=== PATIENT | female | born 1960 | race Two or more races ===

== ENCOUNTER 2024-10-09 09:48 | Inpatient (IN) | payer MEDICAID, OTHER ==
[~2024-10-09] VITALS: Ht 167.6 cm; Wt 78.9 kg
[2024-10-09] MEDS: IPRATROPIUM BROM 0.5 MG/2.5ML INH SOL NEB ONE (10:22)
[2024-10-09] MEDS: ALBUTEROL SULF 2.5 MG/0.5ML(0.5%) NEB SOLN NEB ONE (10:22)
[2024-10-09] MEDS: methylPREDNISolone SOD SUCC 125 MG/2 ML VL IV ONE (10:22)
[2024-10-09] MEDS: AZITHROMYCIN 500MG/ 250ML 250 ML IV ONE (10:22)
--- NOTE | 2024-10-09 10:23 | ED.PDOC ---
SOB-HPI HPI Comments 64 y.o female with PMHx of COPD and HTN, presents to the ED via EMS for a chief complaint of SOB associated with a productive cough that started 3 days ago. Patient reports developing substernal non radiating chest pain today which has since subsided after using nebulizer at home. Patient reports oxygen use at home at 3 liters [place] which she has been using alongside her inhaler noting mild relief. EMS administrated a breathing treatment en route with relief. No active chest pain, nausea, vomiting, diarrhea, abdominal pain, fever or chills reported. 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 Family History Family History: Reviewed,noncontributory to illness Social History Smoker: Non-Smoker Alcohol: Denies ETOH Use Drugs: Denies Drug Use Lives In: Home Constitutional: denies: chills, diaphoresis, fatigue, fever, malaise, sweats, weakness, others EENTM: denies: blurred vision, double vision, ear bleeding, ear discharge, ear drainage, ear pain, ear ringing, eye pain, eye redness, hearing loss, mouth pain, mouth swelling, nasal discharge, nose bleeding, nose congestion, nose pain, photophobia, tearing, throat pain, throat swelling, voice changes, others Respiratory: reports: cough, SOB at rest, shortness of breath, SOB with excertion; denies: hemoptysis, orthopnea, stridor, wheezing, others Cardiovascular: reports: chest pain; denies: dizzy spells, diaphoresis, Dyspnea on exertion, edema, irregular heart beat, left arm pain, lightheadedness, palpitations, PND, syncope, others Gastrointestinal: denies: abdomen distended, abdominal pain, blood streaked bowels, constipated, diarrhea, dysphagia, difficulty swallowing, hematemesis, melena, nausea, poor appetite, poor fluid intake, rectal bleeding, rectal pain, vomiting, others Genitourinary: denies: abnormal vagina bleeding, burning, dyspareunia, dysuria, flank pain, frequency, hematuria, incontinence, pain, , vagina discharge, urgency, others Neurological: denies: dizziness, fainting, headache, left sided numbness, left sided weakness, numbness, paresthesia, pre-existing deficit, right sided numbness, right sided weakness, seizure, speech problems, tingling, tremors, weakness, others Musculoskeletal: denies: back pain, gout, joint pain, joint swelling, muscle pain, muscle stiffness, neck pain, others Integumetry: denies: bruises, change in color, change in hair/nails, dryness, laceration, lesions, lumps, rash, wounds, others Allergic/Immunocompromised: denies: Difficulty Healing, Frequent Infections, Hives, Itching, others Hematologic/Lymphatic: denies: anemia, blood clots, easy bleeding, easy bruising, swollen glands, others Endocrine: denies: excessive hunger, excessive sweating, excessive thirst, excessive urination, flushing, intolerance to cold, intolerance to heat, unexplained weight gain, unexplained weight loss, others Psychiatric: denies: anxiety, bipolar disorder, depression, hopeless, panic disorder, schizophrenia, sleepless, suicidal, others All Other Systems: Reviewed and Negative Physical Exam General Appearance: Mild Distress HEENT: Other (Dry mucous membranes, poor dentition) Neck: Full Range of Motion, Normal Inspection Respiratory: Decreased Breath Sounds, No Accessory Muscle Use, Respiratory Distress (Mild), Rhonchi, Wheezing Cardiovascular: No Edema, No JVD, Regular Rate/Rhythm Breast Exam: Deferred Gastrointestinal: Non Tender, Soft Genitalia: Deferred Pelvic: Deferred Rectal: Deferred Extremities: Normal inspection, Normal range of motion, Non-tender, No pedal edema Neurologic: Alert (Oriented x4), Normal Affect, Normal Mood, Other (Ambulatory without difficulty. No gross focal deficit.) Cerebellar Function: NOT DONE Reflexes: NOT DONE Skin: Dry, Normal Color, Warm Lymphatic: NOT DONE EKG EKG : Comments Sinus rhythm, rate 89, normal intervals, normal axis, RVH, anteroseptal T-wave inversion Was a procedure done? Was a procedure done?: No Differential Dx Differential Diagnosis: Asthma, Bronchitis, CHF, COPD, Pneumonia, Respiratory Distress, URI X-Ray, Labs, Meds, VS Vital Signs Date Time Temp Pulse Resp B/P (MAP) Pulse Ox O2 Delivery O2 Flow Rate FiO2 10/09/24 10:22 18 94 Nasal Cannula* 3 32 10/09/24 09:48 99.2 110 26 148/92 (110) 90 Lab Test 10/09/24 11:00 10/09/24 10:31 Range/Units Troponin I High Sensitivity Pending 5 </=34 ng/L White Blood Count 14.7 H 4.4-10.8 10^3/uL Red Blood Count 5.04 4.0-5.20 10^6/uL Hemoglobin 15.6 12.2-16.2 g/dL Hematocrit 45.5 36.0-46.0 % Mean Corpuscular Volume 90.1 80.0-100.0 fL Mean Corpuscular Hemoglobin 30.9 28.0-32.0 pg Mean Corpuscular Hemoglobin Concent 34.3 32.0-36.0 g/dL Red Cell Distribution Width 14.2 11.8-14.3 % Platelet Count 197 140-450 10^3/uL Mean Platelet Volume 9.5 6.9-10.8 fL Neutrophils (%) (Auto) 80.5 H 37.0-80.0 % Lymphocytes (%) (Auto) 4.5 L 10.0-50.0 % Monocytes (%) (Auto) 12.4 H 0.0-12.0 % Eosinophils (%) (Auto) 2.2 0.0-7.0 % Basophils (%) (Auto) 0.4 0.0-2.0 % Neutrophils # (Auto) 11.8 H 1.6-8.6 10 ^3/uL Lymphocytes # (Auto) 0.7 0.4-5.4 10 ^3/uL Monocytes # (Auto) 1.8 H 0-1.3 10 ^3/uL Eosinophils # (Auto) 0.3 0-0.8 10 ^3/uL Basophils # (Auto) 0.1 0-0.2 10 ^3/uL Nucleated Red Blood Cells 0.1 % Sodium Level 136 136-145 mmol/L Potassium Level 4.1 3.5-5.1 mmol/L Chloride Level 102 98-107 mmol/L Carbon Dioxide Level 28 20-31 mmol/L Anion Gap 6 5-15 Blood Urea Nitrogen 12 9-23 mg/dL Creatinine 0.63 0.550-1.02 mg/dL Glomerular Filtration Rate Calc 99 >90 mL/min BUN/Creatinine Ratio 19.0 10.0-20.0 Serum Glucose 126 H 74-106 mg/dL Calcium Level 9.6 8.7-10.4 mg/dL B-Type Natriuretic Peptide 240.80 0-100 pg/mL Current Medications Medications (Trade) Dose Ordered Sig/Rafael Route Start Time Stop Time Status Last Admin Albuterol (Ventolin Medneb) 5 mg ONCE ONCE NEB 10/09/24 10:15 10/09/24 10:16 DC 10/09/24 10:22 Ipratropium [place] (Atrovent Medneb) 0.5 mg ONCE ONCE NEB 10/09/24 10:15 10/09/24 10:16 DC 10/09/24 10:22 Methylprednisolone Sodium Succinate (Solu Medrol) 125 mg ONCE ONCE IV 10/09/24 10:15 10/09/24 10:16 DC 10/09/24 10:22 Azithromycin 250 ml @ 125 mls/hr ONCE ONCE IV 10/09/24 10:15 10/09/24 12:14 10/09/24 10:22 PROCEDURE(s): CXRP - CHEST PORTABLE REASON: sob ORDER NUMBER(s): [id number], ACCESSION NUMBER(s): [id number] XY CHEST PORTABLE, HISTORY: sob COMPARISON: None None TECHNICAL DATA: 1 view of the chest was obtained. FINDINGS: Lines and tubes: None Cardiomediastinal silhouette: normal Pulmonary vasculature: normal Lung expansion: normal Lung airspace: Patchy bibasilar airspace opacities. Lung interstitium: normal Pleura: normal Pneumothorax: no Bones: Unremarkable Other: no IMPRESSION: Patchy bibasilar airspace opacities. X-Ray, Labs, Meds, VS Comment 64-year-old female with a history of hypertension and COPD on home O2 complaining of shortness a breath despite using her home nebulizer Vitals remarkable for heart rate 110, respiratory rate 26, BP 146/92, oxygen saturation 94% on 3 L nasal cannula Exam remarkable for mild respiratory distress, bilateral rhonchi and wheezes, diminished breath sounds Rhythm strip independently interpreted by me: Sinus tach, rate 110, no ectopy. Chest x-ray CBC, metabolic panel remarkable for WBC 14.7, BNP 240.8, troponin negative, no other abnormalities of acute significance Patient treated with the following in the ED: Albuterol 5 mg/Atrovent 0.5 mg nebulized, Solu-Medrol 125 mg IV, Zithromax 500 mg IV, Rocephin 1 g IV Re-evaluation, patient states her shortness breath has improved, however she is still mildly tachypneic and has scattered rhonchi on exam. Oxygen saturation is 94% on 3 L. Plan is to admit the patient for IV antibiotics and respiratory support as needed. Time of 1ST Reevaluation: 10:12 Reevaluation 1ST: Unchanged Patient Education/Counseling: Diagnosis, Treatment, Prognosis Family Education/Counseling: No Family Present Departure 1 Departure Time of Disposition: 11:22 Impression: Primary Impression: [id number] respiratory failure Qualified Codes: J96.20 - Acute and chronic respiratory failure, unspecified whether with hypoxia or hypercapnia Additional Impressions: COPD exacerbation Pneumonia Qualified Codes: J18.9 - Pneumonia, unspecified organism Disposition: ADMITTED INPATIENT Admit to: Tele Condition: Guarded Critical Care Note Critical Care Time?: No Stability Stability form required: No Heart Score Heart Score: Heart Score Response (Comments) Value History Slightly Suspicious [address]-Deviation 2 Age 45-64 1 Risk Factors >3 or Hx ASHD 2 Troponin Normal limit 0 Total 5 I personally scribed for NGOZI ALLRED MD ([facility]) on 10/09/24 at 10:23. Electronically submitted by Jessika Orozco ([facility]). NGOZI ALLRED MD Oct 09, 2024 10:23
--- NOTE | 2024-10-09 10:35 | DVH ---
XY CHEST PORTABLE, HISTORY: sob COMPARISON: None None TECHNICAL DATA: 1 view of the chest was obtained. FINDINGS: Lines and tubes: None Cardiomediastinal silhouette: normal Pulmonary vasculature: normal Lung expansion: normal Lung airspace: Patchy bibasilar airspace opacities. Lung interstitium: normal Pleura: normal Pneumothorax: no Bones: Unremarkable Other: no IMPRESSION: Patchy bibasilar airspace opacities.
[2024-10-09 10:49] LABS: Chloride 102 mmol/L (98-107); Potassium 4.1 mmol/L (3.5-5.1); Sodium 136 mmol/L (136-145)
[2024-10-09 10:50] LABS: Anion Gap 6 (5-15); Calcium 9.6 mg/dL (8.7-10.4); Carbon Dioxide 28 mmol/L (20-31)
[2024-10-09 10:55] LABS: Blood Urea Nitrogen 12 mg/dL (9-23)
[2024-10-09 11:00] LABS: Glucose 126 mg/dL (74-106)
[2024-10-09 11:20] LABS: Basophils # (auto) 0.1 10 ^3/uL (0-0.2); Basophils % (auto) 0.4 % (0.0-2.0); Eosinophils # (auto) 0.3 10 ^3/uL (0-0.8); Eosinophils % (auto) 2.2 % (0.0-7.0); Hematocrit 45.5 % (36.0-46.0); Hemoglobin 15.6 g/dL (12.2-16.2); Lymphocytes # (auto) 0.7 10 ^3/uL (0.4-5.4); Lymphocytes % (auto) 4.5 % (10.0-50.0); Mean Corpuscular Hemoglobin 30.9 pg (28.0-32.0); Mean Corpuscular Hgb Conc. 34.3 g/dL (32.0-36.0); Mean Corpuscular Volume 90.1 fL (80.0-100.0); Monocytes # (auto) 1.8 10 ^3/uL (0-1.3); Monocytes % (auto) 12.4 % (0.0-12.0); Neutrophils # (auto) 11.8 10 ^3/uL (1.6-8.6); Neutrophils % (auto) 80.5 % (37.0-80.0); Nucleated Red Blood Cells % 0.1 %; Platelet Count (auto) 197 10^3/uL (140-450); Red Blood Cells 5.04 10^6/uL (4.0-5.20); Red Cell Distribution Width 14.2 % (11.8-14.3); White Blood Cell 14.7 10^3/uL (4.4-10.8)
--- NOTE | 2024-10-09 11:20 | ECG ---
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
--- NOTE | 2024-10-09 12:12 | DVHHP2 ---
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 She feels she had an cold. She states she has been coughing so hard that her wrist has been hurting her. She denies any chest pain. Patient denies any calf pain or leg swelling. When patient was in seen she was given treatment and she improved after the first treatment. She does use oxygen at home 3 L but she states that she has not changed amount of L she uses. When evaluating patient's labs and imaging from ED ceftriaxone was given azithromycin Solu-Medrol albuterol and Atrovent white count was 14.7 troponin was negative BNP was mildly elevated at 240 chest x-ray shows pneumonia. With these findings we will admit patient for IV antibiotics and also provide treatment for COPD Past Medical History COPD and hypertension Past Surgical History Family History Reviewed, non-contributory to the management of this case. Past Social History The patient lives at home, denies smoking, alcohol or illicit drugs abuse. Review of Systems Constitutional: No: Fever, Chills, Sweats, Weakness, Malaise, Other Eyes: No: Pain, Vision change, Conjunctivae inflammation, Eyelid inflammation, Other, Redness ENT: No: Ear pain, Ear discharge, Nose pain, Nose discharge, Nose congestion, Mouth pain, Mouth swelling, Throat pain, Throat swelling, Other Respiratory: Cough, Shortness of breath, Other (Coarse rales heard throughout); No: Dry, SOB with excertion, Wheezing, Hemoptysis, Pleuritic Pain, Sputum, Wheezing Cardiovascular: No: Chest Pain, Palpitations, Orthopnea, Paroxysmal Noc. Dyspnea, Edema, Lt Headedness, Other Gastrointestinal: No: Nausea, Vomiting, Abdominal Pain, Diarrhea, Constipation, Melena, Hematochezia, Other Genitourinary: No Dysuria, No Frequency, No Incontinence, No Hematuria, No Retention, No Other Musculoskeletal: No: other, neck pain, shoulder pain, arm pain, back pain, hand pain, leg pain, foot pain Skin: No: Rash, Lesions, Jaundice, Bruising, Other Neurological: No: Weakness, Numbness, Incoordination, Change in speech, Confusion, Seizures, Other Allergies: Coded Allergies: Aspirin (Verified Allergy, Severe, 10/09/24) Exam Vital Signs Vital Signs Date Time Temp Pulse Resp B/P (MAP) Pulse Ox O2 Delivery O2 Flow Rate FiO2 10/09/24 11:18 89 10/09/24 10:22 18 94 Nasal Cannula* 3 32 10/09/24 09:48 99.2 148/92 (110) General Appearance: Alert, Oriented X3, Cooperative, mild distress HEENT: Atraumatic, PERRLA, EOMI, Mucous membr. moist/pink Respiratory: Other (Coarse rales heard throughout) Cardiovascular: Regular rate, Normal S1, Normal S2, No murmurs Abdominal: Normal bowel sounds, Soft, No tenderness, No hepatospenomegaly, No masses Extremities: No clubbing, No cyanosis, No edema, Normal pulses, No tenderness/swelling Skin: No rashes, No breakdown, No significant lesion Neuro: Normal gait, Normal speech, Strength at 5/5 X4 ext, Normal tone, Sensation intact, Cranial nerves 3-12 NL Psych/Mental Status: Mental status NL, Mood NL Labs/Xrays Chest x-ray shows pneumonia I reviewed labs, imaging CT scan abdomen pelvis, EKG and all diagnostic studies on this patient from ED records and the medical chart Labs Test 10/09/24 11:32 10/09/24 11:00 10/09/24 10:31 Range/Units Troponin I High Sensitivity 4 </=34 ng/L White Blood Count 14.7 H 4.4-10.8 10^3/uL Red Blood Count 5.04 4.0-5.20 10^6/uL Hemoglobin 15.6 12.2-16.2 g/dL Hematocrit 45.5 36.0-46.0 % Mean Corpuscular Volume 90.1 80.0-100.0 fL Mean Corpuscular Hemoglobin 30.9 28.0-32.0 pg Mean Corpuscular Hemoglobin Concent 34.3 32.0-36.0 g/dL Red Cell Distribution Width 14.2 11.8-14.3 % Platelet Count 197 140-450 10^3/uL Mean Platelet Volume 9.5 6.9-10.8 fL Neutrophils (%) (Auto) 80.5 H 37.0-80.0 % Lymphocytes (%) (Auto) 4.5 L 10.0-50.0 % Monocytes (%) (Auto) 12.4 H 0.0-12.0 % Eosinophils (%) (Auto) 2.2 0.0-7.0 % Basophils (%) (Auto) 0.4 0.0-2.0 % Neutrophils # (Auto) 11.8 H 1.6-8.6 10 ^3/uL Lymphocytes # (Auto) 0.7 0.4-5.4 10 ^3/uL Monocytes # (Auto) 1.8 H 0-1.3 10 ^3/uL Eosinophils # (Auto) 0.3 0-0.8 10 ^3/uL Basophils # (Auto) 0.1 0-0.2 10 ^3/uL Nucleated Red Blood Cells 0.1 % Sodium Level 136 136-145 mmol/L Potassium Level 4.1 3.5-5.1 mmol/L Chloride Level 102 98-107 mmol/L Carbon Dioxide Level 28 20-31 mmol/L Anion Gap 6 5-15 Blood Urea Nitrogen 12 9-23 mg/dL Creatinine 0.63 0.550-1.02 mg/dL Glomerular Filtration Rate Calc 99 >90 mL/min BUN/Creatinine Ratio 19.0 10.0-20.0 Serum Glucose 126 H 74-106 mg/dL Calcium Level 9.6 8.7-10.4 mg/dL B-Type Natriuretic Peptide 240.80 0-100 pg/mL Assessment/Plan Assessment/Plan acute community acquired bacterial pna found on cxr ordered ceftriaxone and azithromax o2 to keep sats >92% sputum send if pt have acute copd exacerbation ordered albuterol/atrovent prn ordered solumedrol atc o2 to keep sats >92% pulmonary consult fu results acute leukocytosis likely from pna ordered ceftriaxone and azithromax if with fever consider infectious workup chronic problems htn fen/ppx diet hl no gi ppx since no hx of gerds or gi bleed scd plan admit to medicine Plan discussed with: Patient Date of Service: Oct 09, 2024 Billing Provider: LULI PARSON DNP Common Visit Codes: [id number] INP/OBS CARE (HIGH) LULI PARSON DNP Oct 09, 2024 12:12
[2024-10-09] MEDS ORDERED: ONDANSETRON HCL 4 MG/2 ML VIAL IV PRN (12:15)
[2024-10-09] MEDS ORDERED: DOCUSATE SOD 100 MG CAP PO PRN (12:15)
[2024-10-09] MEDS: cefTRIAXone 1GM/50ML D5W 50 ML IV ONE (13:16)
[2024-10-09] MEDS: PANTOPRAZOLE 40 MG/10 ML VIAL INJ IV ONE (13:16)
[2024-10-09] MEDS: SODIUM CHLORIDE 0.9% 1,000 ML IV SCH (13:17)
[2024-10-09] MEDS: ENOXAPARIN SOD 40 MG/0.4 ML SYRINGE SC SCH (13:17)
[2024-10-09] MEDS: methylPREDNISolone SOD SUCC 40 MG/ML VL IV SCH (14:54)
--- NOTE | 2024-10-09 14:55 | DVHINCON2 ---
Date of service: Oct 09, 2024 Referring Physician [place] Reason for Consultation COPD/pneumonia History of Present Illness Pt is a 64 yo female, h/o smoking/COPD/emphysema, presented with shortness of breath, cough and production of green mucus Pt is on hoem 02. Pt seen in ER wheezing, using accessory muscles. CXR shows bilat infiltrates consistent with pneumonia Allergies: Coded Allergies: Aspirin (Verified Allergy, Severe, 10/09/24) Home Meds Active Scripts Alprazolam (Xanax) 0.25 Mg Tb, 1 TAB PO BID PRN, #30 TAB Prov:TATIANNA STRICKLAND MD 10/11/24 Methylprednisolone (Medrol Dosepak) 4 Mg Salo, 4 MG PO UD, #21 TAB UAD Prov:TATIANNA STRICKLAND MD 10/11/24 Azithromycin (Zithromax Z-Salo) 250 Mg Tab, 250 MG PO UD, #6 TAB Prov:TATIANNA STRICKLAND MD 10/11/24 Current Medications Current Medications Medications (Trade) Dose Ordered Sig/Rafael Route PRN Reason Start Time Stop Time Status Last Admin Sodium Chloride 1,000 ml @ 120 mls/hr Q8H20M IV 10/09/24 12:15 Ondansetron HCl (Zofran) 4 mg Q4HP PRN IV NAUSEA / VOMITING 10/09/24 12:15 Docusate Sodium (Colace Capsule) 100 mg BIDPRN PRN PO FOR CONSTIPATION 10/09/24 12:15 Morphine Sulfate 2 mg Q4HPRN PRN IV SEVERE PAIN (7-10 PAIN SCALE) 10/09/24 12:15 Enoxaparin Sodium (Lovenox) 40 mg DAILY SC 10/09/24 12:15 10/09/24 13:17 Ceftriaxone Sodium 50 ml @ 100 mls/hr DAILY@09 IV 10/10/24 09:00 Azithromycin 250 ml @ 125 mls/hr DAILY IV 10/10/24 10:00 Pantoprazole Sodium (Protonix) 40 mg DAILY IV 10/10/24 10:00 Methylprednisolone Sodium Succinate (Solu Medrol) 40 mg Q8HR IV 10/09/24 14:00 Review of Systems Constitutional: no fever, chill, weight loss HEENT: no eye pain, no hearing loss, no oral lesion, no scleral icterus Heart: no chest pain, no chest pressure Lung: dyspnea : no pain with urination, normal appearing urine Musculoskeletal: no joint pain, no muscle pain Neurological: no seizure, no loss of sensation, no weakness in extremities Pysch: no depression, no anxiety Derm: no rash, no jaundice Vital Signs Vital Signs Date Time Temp Pulse Resp B/P (MAP) Pulse Ox O2 Delivery O2 Flow Rate FiO2 10/09/24 11:18 89 10/09/24 10:22 18 94 Nasal Cannula* 3 32 10/09/24 09:48 99.2 148/92 (110) Labs/Diagnostic Data Labs Test 10/09/24 11:32 10/09/24 11:00 10/09/24 10:31 Range/Units Lactic Acid Level 1.5 0.4-2.0 mmol/L Troponin I High Sensitivity 4 </=34 ng/L White Blood Count 14.7 H 4.4-10.8 10^3/uL Red Blood Count 5.04 4.0-5.20 10^6/uL Hemoglobin 15.6 12.2-16.2 g/dL Hematocrit 45.5 36.0-46.0 % Mean Corpuscular Volume 90.1 80.0-100.0 fL Mean Corpuscular Hemoglobin 30.9 28.0-32.0 pg Mean Corpuscular Hemoglobin Concent 34.3 32.0-36.0 g/dL Red Cell Distribution Width 14.2 11.8-14.3 % Platelet Count 197 140-450 10^3/uL Mean Platelet Volume 9.5 6.9-10.8 fL Neutrophils (%) (Auto) 80.5 H 37.0-80.0 % Lymphocytes (%) (Auto) 4.5 L 10.0-50.0 % Monocytes (%) (Auto) 12.4 H 0.0-12.0 % Eosinophils (%) (Auto) 2.2 0.0-7.0 % Basophils (%) (Auto) 0.4 0.0-2.0 % Neutrophils # (Auto) 11.8 H 1.6-8.6 10 ^3/uL Lymphocytes # (Auto) 0.7 0.4-5.4 10 ^3/uL Monocytes # (Auto) 1.8 H 0-1.3 10 ^3/uL Eosinophils # (Auto) 0.3 0-0.8 10 ^3/uL Basophils # (Auto) 0.1 0-0.2 10 ^3/uL Nucleated Red Blood Cells 0.1 % Sodium Level 136 136-145 mmol/L Potassium Level 4.1 3.5-5.1 mmol/L Chloride Level 102 98-107 mmol/L Carbon Dioxide Level 28 20-31 mmol/L Anion Gap 6 5-15 Blood Urea Nitrogen 12 9-23 mg/dL Creatinine 0.63 0.550-1.02 mg/dL Glomerular Filtration Rate Calc 99 >90 mL/min BUN/Creatinine Ratio 19.0 10.0-20.0 Serum Glucose 126 H 74-106 mg/dL Calcium Level 9.6 8.7-10.4 mg/dL B-Type Natriuretic Peptide 240.80 0-100 pg/mL Assessment pneumonia copd acute on chronic hypoxemia emphysema plan suppl [address] chest will follow up Plan discussed with: Patient DASIA ORO MD Oct 09, 2024 14:55
[2024-10-09] MEDS ORDERED: NITROGLYCERIN 0.4 MG SL TAB SL PRN (15:15)
[2024-10-09 16:44] LABS: COVID19 ANTIGEN SOFIA FIA NEGATIVE (NEGATIVE); Rapid Influenza A Negative (Negative); Rapid Influenza B Negative (Negative)
[2024-10-09 17:32] VITALS: BP 137/78; PULSE 90; RESP 20; RESP 90; TEMP 98.3; O2SAT 90
[2024-10-09 18:17] VITALS: BP 124/81; PULSE 98; RESP 16; TEMP 98.1; O2SAT 92
[2024-10-09] MEDS: MORPHINE SULFATE INJ 2 MG/ml SYRG IV PRN (19:19)
[2024-10-09 21:00] VITALS: BP 125/72; PULSE 97; RESP 18; TEMP 99; O2SAT 93
[2024-10-09] MEDS: ACETAMINOPHEN 325 MG TAB PO PRN (22:51)
[2024-10-09] MEDS: guaiFENesin-DM 100/10mg/5ml SYR PO PRN (22:51)
[2024-10-10] VITALS (7 sets, daily range): BP systolic 120–133; BP diastolic 70–80; PULSE 64–92; RESP 16–20; TEMP 97.5–98.3; O2SAT 93–95
[2024-10-10 05:32] LABS: Basophils # (auto) 0 10 ^3/uL (0-0.2); Basophils % (auto) 0.1 % (0.0-2.0); Eosinophils # (auto) 0 10 ^3/uL (0-0.8); Eosinophils % (auto) 0.1 % (0.0-7.0); Hemoglobin 15.2 g/dL (12.2-16.2); Lymphocytes # (auto) 0.7 10 ^3/uL (0.4-5.4); Lymphocytes % (auto) 5.9 % (10.0-50.0); Mean Corpuscular Hemoglobin 29.8 pg (28.0-32.0); Mean Corpuscular Hgb Conc. 33.1 g/dL (32.0-36.0); Mean Corpuscular Volume 89.9 fL (80.0-100.0); Monocytes # (auto) 0.3 10 ^3/uL (0-1.3); Monocytes % (auto) 3.1 % (0.0-12.0); Neutrophils # (auto) 10.3 10 ^3/uL (1.6-8.6); Neutrophils % (auto) 90.8 % (37.0-80.0); Nucleated Red Blood Cells % 0.1 %; Platelet Count (auto) 225 10^3/uL (140-450); Red Blood Cells 5.12 10^6/uL (4.0-5.20); Red Cell Distribution Width 14.4 % (11.8-14.3); White Blood Cell 11.4 10^3/uL (4.4-10.8)
[2024-10-10 05:50] LABS: Alanine Aminotransferase 34 U/L (7-40); Albumin 4.4 g/dL (3.2-4.8); Anion Gap 7 (5-15); Aspartate Aminotransferase 27 U/L (13-40); BUN/Creatinine Ratio 18.8 (10.0-20.0); Bilirubin, Total 0.8 mg/dL (0.2-1.0); Blood Urea Nitrogen 12 mg/dL (9-23); Calcium 10.1 mg/dL (8.7-10.4); Carbon Dioxide 27 mmol/L (20-31); Chloride 103 mmol/L (98-107); Potassium 4.2 mmol/L (3.5-5.1); Sodium 137 mmol/L (136-145); Total Protein 7.7 g/dL (5.7-8.2)
[2024-10-10 06:27] LABS: Alkaline Phosphatase 139 U/L (46-116); Glucose 161 mg/dL (74-106)
[2024-10-10] MEDS: PANTOPRAZOLE 40 MG/10 ML VIAL INJ IV SCH (09:15)
[2024-10-10] MEDS: cefTRIAXone 1GM/50ML D5W 50 ML IV SCH (09:15)
[2024-10-10] MEDS: AZITHROMYCIN 500MG/ 250ML 250 ML IV SCH (10:00)
[2024-10-10 10:17] LABS: Urine Bacteria None Seen /hpf (None Seen)
[2024-10-10 10:51] LABS: Urine Blood Negative /uL (Negative); Urine Clarity Clear (Clear); Urine Color Light-Yellow (Yellow); Urine Protein, UAD Negative (Negative); Urine Specific Gravity 1.012 (1.001-1.035); Urine Squamous Epithelial Cell FEW /hpf (<5); Urine Urobilinogen Normal (Negative); Urine WBC < 1 /HPF (0-5)
--- NOTE | 2024-10-10 11:59 | DVHPN2 ---
Subjective 64-year-old female with a history of COPD and chronic respiratory failure on home O2 came with cough and shortness of breaths and anxiety Changes from previous H/P or p: Changes Eyes: No Pain, No Vision change, No Conjunctivae inflammation, No Eyelid inflammation, No Other, No Redness ENT: No Ear pain, No Ear discharge, No Nose pain, No Nose discharge, No Nose congestion, No Mouth pain, No Mouth swelling, No Throat pain, No Throat swelling, No Other Cardiovascular: No Chest Pain, No Palpitations, No Orthopnea, No Paroxysmal Noc. Dyspnea, No Edema, No Lt Headedness, No Other Respiratory: Cough; No Dry; Shortness of breath; No SOB with excertion, No Wheezing, No Hemoptysis, No Pleuritic Pain, No Sputum; Other (Coarse rales heard throughout) Gastrointestinal: No Nausea, No Vomiting, No Abdominal Pain, No Diarrhea, No Constipation, No Melena, No Hematochezia, No Other Genitourinary: No Dysuria, No Frequency, No Incontinence, No Hematuria, No Retention, No Other Musculoskeletal: No other, No neck pain, No shoulder pain, No arm pain, No back pain, No hand pain, No leg pain, No foot pain Skin: No Rash, No Lesions, No Jaundice, No Bruising, No Other Objective Vitals Vital Signs Date Time Temp Pulse Resp B/P (MAP) Pulse Ox O2 Delivery O2 Flow Rate FiO2 10/10/24 09:00 97.9 80 16 125/74 (91) 94 97.9 10/09/24 20:00 Nasal Cannula* 3 32 Intake/Output Intake and Output 10/10/24 07:00 Intake Total 650 ml Balance 650 ml Intake Oral 350 ml IV Total 300 ml # Voids 2 General Appearance: Alert, Oriented X3 Lungs: Other (Bilateral rhonchi and crackles at the bases) Cardiovascular: Regular rate, Normal S1, Normal S2 Abdomen: Normal bowel sounds, Soft, No tenderness Extremities: No edema Medications Current Medications Medications Dose Ordered Sig/Rafael Route Start Time Stop Time Status Last Admin Dose Admin Sodium Chloride 1,000 ml @ 120 mls/hr Q8H20M IV 10/09/24 12:15 10/10/24 05:21 120 MLS/HR Ondansetron HCl 4 mg Q4HP PRN IV 10/09/24 12:15 Docusate Sodium 100 mg BIDPRN PRN PO 10/09/24 12:15 Morphine Sulfate 2 mg Q4HPRN PRN IV 10/09/24 12:15 10/09/24 19:19 2 MG Enoxaparin Sodium 40 mg DAILY SC 10/09/24 12:15 10/10/24 09:15 40 MG Ceftriaxone Sodium 50 ml @ 100 mls/hr DAILY@09 IV 10/10/24 09:00 10/10/24 09:15 100 MLS/HR Azithromycin 250 ml @ 125 mls/hr DAILY IV 10/10/24 10:00 10/10/24 10:00 125 MLS/HR Pantoprazole Sodium 40 mg DAILY IV 10/10/24 10:00 10/10/24 09:15 40 MG Methylprednisolone Sodium Succinate 40 mg Q8HR IV 10/09/24 14:00 10/10/24 05:21 40 MG Nitroglycerin 0.4 mg Q5MINP PRN SL 10/09/24 15:15 Acetaminophen 650 mg Q8HPRN PRN PO 10/09/24 22:45 10/09/24 22:51 650 MG Guaifenesin/ Dextromethorphan 10 ml Q6HPRN PRN PO 10/09/24 22:45 10/09/24 22:51 10 ML Laboratory Results Laboratory Tests 10/10/24 05:00 Chemistry Test 10/10/24 05:00 Albumin 4.4 g/dL (3.2-4.8) Calcium Level 10.1 mg/dL (8.7-10.4) Total Protein 7.7 g/dL (5.7-8.2) LFT Test 10/10/24 05:00 Alanine Aminotransferase (ALT) 34 U/L (7-40) Alkaline Phosphatase 139 U/L (46-116) H Aspartate Amino Transferase (AST) 27 U/L (13-40) Total Bilirubin 0.8 mg/dL (0.2-1.0) Urinalysis Test 10/10/24 09:30 Urine Color Light-yellow (Yellow) Urine Clarity Clear (Clear) Urine pH 6.0 (5.0-9.0) Urine Specific [place] 1.012 (1.001-1.035) Urine Protein Negative (Negative) Urine Ketones Negative (Negative) Urine Blood Negative /uL (Negative) Urine Nitrite Negative (Negative) Urine Bilirubin Negative (Negative) Urine Urobilinogen Normal mg/dL (Negative) Urine Leukocyte Esterase Negative /uL (Negative) Urine RBC None seen /hpf (0 - 4) Urine Microscopic WBC < 1 /HPF (0-5) Urine Squamous Epithelial Cells Few /hpf (<5) Urine Bacteria None seen /hpf (None Seen) Urine Glucose Normal mg/dL (Normal) Microbiology Microbiology Date/Time Source Procedure Growth Status 10/09/24 11:32 Blood Blood Culture - Preliminary NO GROWTH AFTER 24 HOURS OF INCUBATION. Resulted Assessment/Plan Assessment/Plan Acute hypoxic respiratory failure Chronic respiratory failure on home O2 COPD exacerbation Anxiety Bilateral pneumonia Sepsis due to pneumonia Leukocytosis due to pneumonia Hypertension Plan Discontinue the IV fluids Give Xanax p.r.n. for anxiety Ambien p.r.n. for insomnia Med neb treatments as needed Oxygen IV antibiotics Zithromax and Rocephin IV steroids Monitor closely The rest of the management will depend on the hospital course Full code Advance directives discussed for 15 minutes Plan discussed with: Patient My Orders Orders - TATIANNA STRICKLAND MD Procedure Category Date Status Time Alprazolam Tablet PHA 10/10/24 Verified (Xanax Tablet) 12:00 Zolpidem Tartrate PHA 10/10/24 Verified (Ambien) 12:00 Complete Blood Count LAB 10/11/24 Verified 04:00 Comprehensive LAB 10/11/24 Verified Metabolic Panel 04:00 Magnesium LAB 10/11/24 Verified 04:00 Date of Service: Oct 10, 2024 Billing Provider: TATIANNA STRICKLAND MD Common Visit Codes: [id number] INP/OBS CARE(HIGH) Secondary Visit Codes: [id number] CARE PLAN 30 MINUTES TATIANNA STRICKLAND MD Oct 10, 2024 11:59
[2024-10-10] MEDS: ALPRAZolam 0.5 MG TAB PO PRN (12:14)
--- NOTE | 2024-10-10 21:24 | DVHPN2 ---
Progress Note - Dictate Date Seen: Oct 10, 2024 Medical Necessity Reason Pt with a Central, PICC or Fol: No Subjective Patient seen and examined at bedside. Remains on supplemental oxygen Overnight events reviewed. vital signs Vital Sign Date Time Temp Pulse Resp B/P (MAP) Pulse Ox O2 Delivery O2 Flow Rate FiO2 10/10/24 21:00 97.8 88 17 133/80 (97) 94 97.8 10/10/24 20:00 Nasal Cannula* 3 32 Total Intake and Output 10/09/24 10/09/24 10/10/24 15:00 23:00 07:00 Intake Total 300 ml 350 ml Balance 300 ml 350 ml medications Current Medications Medications Dose Ordered Sig/Rafael Route Start Time Stop Time Status Last Admin Dose Admin Ondansetron HCl 4 mg Q4HP PRN IV 10/09/24 12:15 Docusate Sodium 100 mg BIDPRN PRN PO 10/09/24 12:15 Morphine Sulfate 2 mg Q4HPRN PRN IV 10/09/24 12:15 10/09/24 19:19 2 MG Enoxaparin Sodium 40 mg DAILY SC 10/09/24 12:15 10/10/24 09:15 40 MG Ceftriaxone Sodium 50 ml @ 100 mls/hr DAILY@09 IV 10/10/24 09:00 10/10/24 09:15 100 MLS/HR Azithromycin 250 ml @ 125 mls/hr DAILY IV 10/10/24 10:00 10/10/24 10:00 125 MLS/HR Pantoprazole Sodium 40 mg DAILY IV 10/10/24 10:00 10/10/24 09:15 40 MG Methylprednisolone Sodium Succinate 40 mg Q8HR IV 10/09/24 14:00 10/10/24 13:30 40 MG Nitroglycerin 0.4 mg Q5MINP PRN SL 10/09/24 15:15 Acetaminophen 650 mg Q8HPRN PRN PO 10/09/24 22:45 10/09/24 22:51 650 MG Guaifenesin/ Dextromethorphan 10 ml Q6HPRN PRN PO 10/09/24 22:45 10/09/24 22:51 10 ML Alprazolam 0.5 mg Q8HPRN PRN PO 10/10/24 12:00 10/10/24 12:14 0.5 MG Zolpidem Tartrate 5 mg HSPRN PRN PO 10/10/24 12:00 objective Gen.: Patient lying in bed in no apparent distress. On supplemental oxygen. Head: Normocephalic, atraumatic. Eyes: EOMI/PERRLA. Ears: Normal hearing. Normal anatomy. Neck/trachea: Trachea midline, supple. Nose: Normal external anatomy. Mouth: Moist mucous membranes. Chest: Decreased air entry bilaterally. No wheezing or rhonchi. Cardiovascular: Positive S1, positive S2. Regular rate and rhythm. Abdomen: Positive bowel sounds in all 4 quadrants. Soft, non-tender, non- distended. : Deferred. Rectal: Deferred. Skin: Warm, dry. Intact. Extremities: 2+ radial pulses bilaterally. No lower extremity edema. Neuro: Awake, alert, oriented x3. No gross motor or sensory deficits. Cranial nerves II through XII intact. Gait not assessed. laboratory and microbiology Laboratory Tests 10/10/24 05:00 Test 10/10/24 05:00 Range/Units Serum Glucose 161 H 74-106 mg/dL Assessment/Plan Impression: Chronic obstructive pulmonary disease Exacerbation Acute on chronic hypoxemic respiratory failure Pneumonia likely gram negative Emphysema Events: Remains on supplemental oxygen, 3 LPM NC Taper O2 as tolerated Continue bronchodilators Continue IV steroids Continue antibiotics Antitussive PRN. Incentive spirometry Protonix for GI prophylaxis Labs and imaging reviewed. Rest of plan as noted below. Plan: Supplemental oxygen Titrate to keep O2 sats above 92%. Continue bronchodilators IV steroids Antibiotics Protonix for GI prophylaxis Monitor renal function. Monitor electrolytes. Supplement as necessary. Prognosis: Guarded given patient's multiple co-morbidities. Rest of plan per hospitalist and other consultants. Thank you Dr. Crews for allowing me to participate in this patient's care. Further recommendations will depend on the patient's clinical course. Please do not hesitate to contact me if you have any questions or concerns. This medical document was created using an electronic medical record system with [employer] system. Although these documentations are being carefully reviewed, there may still be some phonetic and typographical changes. The errors are purely typographical, due to imperfection on the software program, and do not reflect any compromise in the patient's medical care. Plan discussed with: Patient, Other (AMIRA Torres MD Oct 10, 2024 21:24
[2024-10-10] MEDS: ZOLPIDEM TARTRATE 5 MG TAB PO PRN (21:31)
[2024-10-11 00:54] VITALS: BP 128/99; PULSE 61; RESP 16; TEMP 98.1; O2SAT 92
[2024-10-11 05:06] VITALS: BP 101/63; PULSE 86; RESP 16; TEMP 97.9; O2SAT 94
[2024-10-11 06:21] LABS: Basophils # (auto) 0 10 ^3/uL (0-0.2); Basophils % (auto) 0.1 % (0.0-2.0); Eosinophils # (auto) 0 10 ^3/uL (0-0.8); Eosinophils % (auto) 0.1 % (0.0-7.0); Hematocrit 45.5 % (36.0-46.0); Lymphocytes # (auto) 0.8 10 ^3/uL (0.4-5.4); Lymphocytes % (auto) 5.1 % (10.0-50.0); Mean Corpuscular Hemoglobin 29.7 pg (28.0-32.0); Mean Corpuscular Volume 89.8 fL (80.0-100.0); Monocytes % (auto) 6.8 % (0.0-12.0); Neutrophils % (auto) 87.9 % (37.0-80.0); Nucleated Red Blood Cells % 0.1 %; Platelet Count (auto) 269 10^3/uL (140-450); Red Blood Cells 5.07 10^6/uL (4.0-5.20); Red Cell Distribution Width 14.4 % (11.8-14.3); White Blood Cell 14.8 10^3/uL (4.4-10.8)
[2024-10-11 06:33] LABS: Alanine Aminotransferase 35 U/L (7-40); Albumin 4.2 g/dL (3.2-4.8); Anion Gap 7 (5-15); Aspartate Aminotransferase 26 U/L (13-40); BUN/Creatinine Ratio 27.9 (10.0-20.0); Blood Urea Nitrogen 17 mg/dL (9-23); Calcium 10.1 mg/dL (8.7-10.4); Carbon Dioxide 28 mmol/L (20-31); Chloride 105 mmol/L (98-107); Magnesium 2.1 mg/dL (1.6-2.6); Potassium 4.1 mmol/L (3.5-5.1); Sodium 140 mmol/L (136-145)
[2024-10-11 06:34] LABS: Bilirubin, Total 0.4 mg/dL (0.2-1.0); Total Protein 7.2 g/dL (5.7-8.2)
[2024-10-11 06:42] LABS: Alkaline Phosphatase 124 U/L (46-116); Glucose 161 mg/dL (74-106)
[2024-10-11 08:10] VITALS: PULSE 100; RESP 20; O2SAT 92
[2024-10-11 09:00] VITALS: BP 143/81; PULSE 100; RESP 20; TEMP 98.2; O2SAT 92
[2024-10-11] MEDS ORDERED: AZITTAB PO (10:30)
[2024-10-11] MEDS ORDERED: ALPR0.25 PO (10:30)
[2024-10-11] MEDS ORDERED: METH4PAK PO (10:30)
--- NOTE | 2024-10-11 10:34 | DVHDS2 ---
Discharge Summary Date of Admission Oct 09, 2024 at 15:01 Date of Discharge: Oct 11, 2024 Labs/Diagnostic Data: Laboratory Results Test 10/11/24 05:32 10/10/24 09:30 10/09/24 15:09 10/09/24 11:32 White Blood Count 14.8 10^3/uL (4.4-10.8) Red Blood Count 5.07 10^6/uL (4.0-5.20) Hemoglobin 15.0 g/dL (12.2-16.2) Hematocrit 45.5 % (36.0-46.0) Mean Corpuscular Volume 89.8 fL (80.0-100.0) Mean Corpuscular Hemoglobin 29.7 pg (28.0-32.0) Mean Corpuscular Hemoglobin Concent 33.0 g/dL (32.0-36.0) Red Cell Distribution Width 14.4 % (11.8-14.3) Platelet Count 269 10^3/uL (140-450) Mean Platelet Volume 8.8 fL (6.9-10.8) Neutrophils (%) (Auto) 87.9 % (37.0-80.0) Lymphocytes (%) (Auto) 5.1 % (10.0-50.0) Monocytes (%) (Auto) 6.8 % (0.0-12.0) Eosinophils (%) (Auto) 0.1 % (0.0-7.0) Basophils (%) (Auto) 0.1 % (0.0-2.0) Neutrophils # (Auto) 13.0 10 ^3/uL (1.6-8.6) Lymphocytes # (Auto) 0.8 10 ^3/uL (0.4-5.4) Monocytes # (Auto) 1.0 10 ^3/uL (0-1.3) Eosinophils # (Auto) 0 10 ^3/uL (0-0.8) Basophils # (Auto) 0 10 ^3/uL (0-0.2) Nucleated Red Blood Cells 0.1 % Sodium Level 140 mmol/L (136-145) Potassium Level 4.1 mmol/L (3.5-5.1) Chloride Level 105 mmol/L (98-107) Carbon Dioxide Level 28 mmol/L (20-31) Anion Gap 7 (5-15) Blood Urea Nitrogen 17 mg/dL (9-23) Creatinine 0.61 mg/dL (0.550-1.02) Glomerular Filtration Rate Calc 100 mL/min (>90) BUN/Creatinine Ratio 27.9 (10.0-20.0) Serum Glucose 161 mg/dL (74-106) Calcium Level 10.1 mg/dL (8.7-10.4) Magnesium Level 2.1 mg/dL (1.6-2.6) Total Bilirubin 0.4 mg/dL (0.2-1.0) Aspartate Amino Transferase (AST) 26 U/L (13-40) Alanine Aminotransferase (ALT) 35 U/L (7-40) Alkaline Phosphatase 124 U/L (46-116) Total Protein 7.2 g/dL (5.7-8.2) Albumin 4.2 g/dL (3.2-4.8) Urine Color Light-yellow (Yellow) Urine Clarity Clear (Clear) Urine pH 6.0 (5.0-9.0) Urine Specific [place] 1.012 (1.001-1.035) Urine Protein Negative (Negative) Urine Ketones Negative (Negative) Urine Blood Negative /uL (Negative) Urine Nitrite Negative (Negative) Urine Bilirubin Negative (Negative) Urine Urobilinogen Normal mg/dL (Negative) Urine Leukocyte Esterase Negative /uL (Negative) Urine RBC None seen /hpf (0 - 4) Urine Microscopic WBC < 1 /HPF (0-5) Urine Squamous Epithelial Cells Few /hpf (<5) Urine Bacteria None seen /hpf (None Seen) Urine Glucose Normal mg/dL (Normal) Influenza Type A Antigen Negative (Negative) Influenza Type B Antigen Negative (Negative) SARS-CoV-2 Antigen (Rapid) Negative (NEGATIVE) Lactic Acid Level 1.5 mmol/L (0.4-2.0) Test 10/09/24 11:00 10/09/24 10:31 Troponin I High Sensitivity 4 ng/L (</=34) B-Type Natriuretic Peptide 240.80 pg/mL (0-100) Other Laboratory Tests 10/11/24 05:32 Brief Hx & Hospital Course: Final diagnoses: Acute hypoxic respiratory failure Chronic respiratory failure on home O2 COPD exacerbation Anxiety Bilateral pneumonia Sepsis due to pneumonia Leukocytosis due to pneumonia Hypertension She was admitted with IV antibiotics and IV steroids and oxygen med nebs She had anxiety so she was given Xanax She had insomnia which was treated with Ambien Overall the patient improved and her wheezing is much better now She uses oxygen at 3 L at home and she is on 3 L here and therefore she can be discharged home to take a tapered dose prednisone and Xanax and Zithromax and resume the home medications Follow up with her primary care physician as soon as possible Condition at Discharge: Stable Final Diagnosis/Problems List Acute hypoxic respiratory failure Chronic respiratory failure on home O2 COPD exacerbation Anxiety Bilateral pneumonia Sepsis due to pneumonia Leukocytosis due to pneumonia Hypertension Discharge Disposition: Home SNF Discharge Will this Physician continue t: No Discharge Instruct/Medications Diet: Cardiac 2g Na,low cholest Activity: No Restrictions, As Tolerated Follow Up/Referral: PCP as soon as possible Medications: Medrol Dosepak Z-Salo Xanax p.r.n. Resume the home medications Discharge Statement: "Patient was advised to return to the ER or call 911 if any headaches, dizziness, shortness of breath, chest pain, abdominal pain, bleeding, fevers, or worsening of medical condition. Patient was counseled about treatment plan, medications, possible side effects, patientverbalized understanding. All questions were answered to the best of my ability. This discharge took greater then 30 minutes in planning, reviewing documentation, counseling the patient, and discussing with other team members." ASSESSMENT ASSESSMENT Assessment Acute hypoxic respiratory failure Chronic respiratory failure on home O2 COPD exacerbation Anxiety Bilateral pneumonia Sepsis due to pneumonia Leukocytosis due to pneumonia Hypertension Date of Service: Oct 11, 2024 Billing Provider: TATIANNA STRICKLAND MD Common Visit Codes: [id number]-BYG/[id number] DISCH DAY >30min TATIANNA STRICKLAND MD Oct 11, 2024 10:34
[2024-10-11] MEDS ORDERED: PNEUMOCOCCAL VACC POLYS 25 MCG/0.5 ML VIAL IM SCH (11:30)
[2024-10-11] MEDS: INFLUENZA TRIVALENT 2024-2025 0.5 ML INJ IM ONE (12:37)
--- NOTE | 2024-10-11 17:21 | DVHPN2 ---
Progress Note - Dictate Date Seen: Oct 11, 2024 Medical Necessity Reason Pt with a Central, PICC or Fol: No Subjective Patient seen and examined at bedside. Remains on supplemental oxygen Overnight events reviewed. vital signs Vital Sign Date Time Temp Pulse Resp B/P (MAP) Pulse Ox O2 Delivery O2 Flow Rate FiO2 10/11/24 09:00 98.2 100 20 143/81 (101) 92 98.2 10/11/24 08:10 Nasal Cannula* 3 32 Total Intake and Output 10/10/24 10/10/24 10/11/24 15:00 23:00 07:00 Intake Total 300 ml 1200 ml 300 ml Balance 300 ml 1200 ml 300 ml objective Gen.: Patient lying in bed in no apparent distress. On supplemental oxygen. Head: Normocephalic, atraumatic. Eyes: EOMI/PERRLA. Ears: Normal hearing. Normal anatomy. Neck/trachea: Trachea midline, supple. Nose: Normal external anatomy. Mouth: Moist mucous membranes. Chest: Decreased air entry bilaterally. No wheezing or rhonchi. Cardiovascular: Positive S1, positive S2. Regular rate and rhythm. Abdomen: Positive bowel sounds in all 4 quadrants. Soft, non-tender, non- distended. : Deferred. Rectal: Deferred. Skin: Warm, dry. Intact. Extremities: 2+ radial pulses bilaterally. No lower extremity edema. Neuro: Awake, alert, oriented x3. No gross motor or sensory deficits. Cranial nerves II through XII intact. Gait not assessed. laboratory and microbiology Laboratory Tests 10/11/24 05:32 Test 10/11/24 05:32 Range/Units Serum Glucose 161 H 74-106 mg/dL Assessment/Plan Impression: Chronic obstructive pulmonary disease Exacerbation Acute on chronic hypoxemic respiratory failure Pneumonia likely gram negative Emphysema Events: Remains on supplemental oxygen, 3 LPM NC Taper O2 as tolerated Continue bronchodilators Continue IV steroids Continue antibiotics Antitussive PRN. Incentive spirometry Protonix for GI prophylaxis Pt stable for discharge from pulmonary standpoint. F/u in pulm clinic within 2-3 weeks. Labs and imaging reviewed. Rest of plan as noted below. Plan: Supplemental oxygen Titrate to keep O2 sats above 92%. Continue bronchodilators IV steroids Antibiotics Protonix for GI prophylaxis Monitor renal function. Monitor electrolytes. Supplement as necessary. Prognosis: Guarded given patient's multiple co-morbidities. Rest of plan per hospitalist and other consultants. Thank you Dr. Crews for allowing me to participate in this patient's care. Further recommendations will depend on the patient's clinical course. Please do not hesitate to contact me if you have any questions or concerns. This medical document was created using an electronic medical record system with [employer] dictation system. Although these documentations are being carefully reviewed, there may still be some phonetic and typographical changes. The errors are purely typographical, due to imperfection on the software program, and do not reflect any compromise in the patient's medical care. Plan discussed with: Other (KARINE Bryan) AMIRA MAHMOOD MD Oct 11, 2024 17:21
== END 2024-10-11 13:00 | disposition home or self-care (01) | DRG 720 ==
LOC: EDBD 09:48 → ER 09:48 → OVERFLOW 15:01 → CENTRAL 18:08
PROVIDERS: ADMIT Internal Medicine Geriatric Medicine; ATTEND Internal Medicine Geriatric Medicine
DX: A41.50 Gram-negative sepsis, unspecified (principal); J96.21 Acute and chronic respiratory failure with hypoxia; J15.69 Pneumonia due to other Gram-negative bacteria; J15.9 Unspecified bacterial pneumonia; Z20.822 Contact with and (suspected) exposure to COVID-19; Z99.81 Dependence on supplemental oxygen; J44.1 Chronic obstructive pulmonary disease with (acute) exacerbation; J43.9 Emphysema, unspecified; F41.9 Anxiety disorder, unspecified; I10 Essential (primary) hypertension; J44.0 Chronic obstructive pulmonary disease with (acute) lower respiratory infection; G47.00 Insomnia, unspecified; Z98.891 History of uterine scar from previous surgery; Z88.6 Allergy status to analgesic agent
CPT/HCPCS: 36415; 71045; 80048; 80053; 81001; 83605; 83735; 83880; 84484; 85025; 87040; 87426; 87804; 93005; 94640; 96365; 96367; 96372; 96375; G0378; J2470